=== PATIENT | male | born 1980 | race Caucasian/White ===

== ENCOUNTER 2021-10-03 08:23 | Emergency (ER) | payer OTHER ==
[2021-10-03] MEDS ORDERED: HYDROmorphone 2 MG/ML SDV IM ONE (08:30)
[2021-10-03] MEDS ORDERED: hydrOXYzine HCl 50 MG/ML SDV IM ONE (08:30)
--- NOTE | 2021-10-03 09:15 | EDM.PDOC ---
ED HPI GENERAL MEDICAL PROBLEM - General Chief Complaint: Lower Extremity Injury/Pain Stated Complaint: FINGER CAUGHT IN MACHINE Time Seen by Provider: 10/03/21 09:12 Source of Information: Reports: Patient History Limitations: Reports: No Limitations - History of Present Illness INITIAL COMMENTS - FREE TEXT/NARRATIVE: 40 yo male with a work related crush injury to the left middle finger. this happened this morning when his finger got caught between the machines at [employer].He is in extreme pain. Left Finger-Middle Pain Score (Numeric/FACES): 10 - Related Data Allergies Allergy/AdvReac Type Severity Reaction Status Date / Time No Known Allergies Allergy Verified 10/03/21 08:28 Review of Systems - Review of Systems Review Of Systems: Comprehensive ROS is negative, except as noted in HPI. ED EXAM, GENERAL - Physical Exam Exam: See Below Exam Limited By: No Limitations General Appearance: Alert, WD/WN Extremities: Other (Crush injry,deformity of left middl efinger.) Course - Vital Signs Last Recorded V/S: Last Vital Signs Temp 97.7 F 10/03/21 10:20 Pulse 73 10/03/21 10:20 Resp 18 10/03/21 10:20 BP 131/97 H 10/03/21 10:20 Pulse Ox 97 10/03/21 10:20 - Orders/Labs/Meds Orders: Active Orders 24 hr Category Date Time Status Fingers Third Digit Lt F2 [CR] Stat Exams 10/03/21 08:30 Taken Meds: Medications Discontinued Medications Generic Name Dose Route Start Last Admin Trade Name Freq PRN Reason Stop Dose Admin Cefazolin Sodium 2 gm 10/03/21 09:32 10/03/21 09:40 Cefazolin 1 Gm Vial IVPUSH 10/03/21 09:33 2 gm ONETIME ONE Administration Hydromorphone HCl 1 mg 10/03/21 08:30 10/03/21 08:35 Hydromorphone 2 Mg/Ml Sdv IM 10/03/21 08:31 1 mg ONETIME ONE Administration Hydromorphone HCl 1 mg 10/03/21 10:10 10/03/21 10:14 Hydromorphone 2 Mg/Ml Sdv IVPUSH 10/03/21 10:11 1 mg ONETIME ONE Administration Hydroxyzine HCl 50 mg 10/03/21 08:30 10/03/21 08:37 Hydroxyzine Hcl 50 Mg/Ml Sdv IM 10/03/21 08:31 50 mg ONETIME ONE Administration Departure - Departure Time of Disposition: 13:07 Disposition: DC/Tfer to Acute Hospital 02 Clinical Impression: Fracture, finger, open Qualifiers: Encounter type: initial encounter Finger: middle finger Phalanx: middle Fracture alignment: nondisplaced Laterality: left Qualified Code(s): S62.653B - Nondisplaced fracture of middle phalanx of left middle finger, initial encounter for open fracture - Discharge Information Referrals: Ama Rivera, DONATIONS ATTENDANT [Primary Care Provider] - Forms: ED Department Discharge Sepsis Event Note (ED) - Focused Exam Vital Signs: Vital Signs Temp Pulse Resp BP Pulse Ox 10/03/21 10:20 97.7 F 73 18 131/97 H 97 10/03/21 08:23 97.5 F 109 H 20 133/106 H 97 - Problem List & Annotations (1) Fracture, finger, open SNOMED Code(s): 47228759 Code(s): S62.609B - FRACTURE OF UNSP PHALANX OF UNSP FINGER, INIT FOR OPN FX Status: Acute Qualifiers: Encounter type: initial encounter Finger: middle finger Phalanx: middle Fracture alignment: nondisplaced Laterality: left Qualified Code(s): S62.653B - Nondisplaced fracture of middle phalanx of left middle finger, initial encounter for open fracture - Problem List Review Problem List Initiated/Reviewed/Updated: Yes - My Orders Last 24 Hours: My Active Orders 10/03/21 08:30 Fingers Third Digit Lt F2 [CR] Stat - Assessment/Plan Last 24 Hours: My Active Orders 10/03/21 08:30 Fingers Third Digit Lt F2 [CR] Stat Plan: I reviewed the X ray -showed non displaced fracture of proximal phalanx. I will send him to [place]
[2021-10-03] MEDS ORDERED: ceFAZolin 1 GM Vial IVPUSH ONE (09:32)
[2021-10-03] MEDS ORDERED: HYDROmorphone 2 MG/ML SDV IVPUSH ONE (10:10)
--- NOTE | 2021-10-05 10:17 | CR ---
INDICATION: Crush injury. LEFT THIRD FINGER: Three views of the left third finger revealed flexion at the DIPJ with apparent soft tissue injury at the distal phalanx. The appearance is compatible with extensor ligament rupture. Chip fracture fragments may be present along the dorsum and lateral aspect of the DIPJ with fracture fragments most likely avulsed off the dorsal aspect of the proximal metaphysis of the distal phalanx. There is also suggestion of a transverse fracture through the distal metaphysis of the middle phalanx, essentially undisplaced. No other significant bone or joint abnormality was identified. MTDD
== END 2021-10-03 10:20 ==
LOC: FB.ED 08:23
DX: S62.653B Nondisplaced fracture of middle phalanx of left middle finger, initial encounter for open fracture (principal); W23.0XXA Caught, crushed, jammed, or pinched between moving objects, initial encounter; Y92.89 Other specified places as the place of occurrence of the external cause; Y99.0 Civilian activity done for income or pay
CPT/HCPCS: 73140-F2; 96372; 96374; 96375; 99000; 99284-25; J0690; J1170; J3410

== ENCOUNTER → 2025-08-02 | Day surgery (SDC) | payer OTHER ==
[~2025-08-02] MED LIST: Ketamine 500 mg/10 ML MDV IV ONE; Midazolam 1 MG/ML 2 ML SDV IV ONE; Propofol 200 MG/20 ML SDV IV ONE; Sodium Chloride 0.9% 10 ML Syringe FLUSH PRN
[2025-08-02] MEDS: Lactated Ringers 1,000 ML IV SCH (08:17)
[2025-08-04 00:13] LABS: LACTOFERRIN,FECAL BY ELISA Negative (Negative)
[2025-08-04 01:01] LABS: ADENOVIRUS 40/41 PCR Not Detected; ASTROVIRUS PCR Not Detected; CRYPTOSPORIDIUM PCR Not Detected; CYCLOSPORA CAYETANENSIS PCR Not Detected; ENTAMOEBA HISTOLYTICA PCR Not Detected; ENTEROAGGREGATIVE E. COLI PCR Not Detected; ENTEROPATHOGENIC E. COLI PCR Detected; ENTEROTOXIGENIC E. COLI PCR Not Detected; GIARDIA LAMBLIA PCR Not Detected; NOROVIRUS GI/GII PCR Not Detected; PLESIOMONAS SHIGELLOIDES PCR Not Detected; ROTAVIRUS A PCR Not Detected; SALMONELLA PCR Not Detected; SAPOVIRUS PCR Not Detected; SHIG/ENTEROINVASIVE E COLI PCR Not Detected; SHIGA TOXIN-PRODUC E. COLI PCR Not Detected; VIBRIO CHOLERAE PCR Not Detected; VIBRIO PCR Not Detected; YERSINIA ENTEROCOLITICA PCR Not Detected
== END | disposition home or self-care (01) ==
LOC: FB.SDS 07:07
PROVIDERS: ATTEND Surgery
DX: K63.5 Polyp of colon (principal); K62.1 Rectal polyp; K52.9 Noninfective gastroenteritis and colitis, unspecified; K57.31 Diverticulosis of large intestine without perforation or abscess with bleeding; F17.210 Nicotine dependence, cigarettes, uncomplicated; Z79.899 Other long term (current) drug therapy
CPT/HCPCS: 00811; 45380; 45384; 83630; 87507; 88305; A9270; J2250; J2704; J3490; J7120